=== PATIENT | male | born 1935 | race Caucasian/White ===

== ENCOUNTER 2019-01-29 05:29 | Emergency (ER) | payer MEDICARE ==
[~2019-01-29] VITALS: Ht 170.2 cm; Wt 70.3 kg
[2019-01-29] MEDS ORDERED: MECL12.5 (06:02)
[2019-01-29] MEDS ORDERED: ZESTORETIC 20-121 EA (06:02)
[2019-01-29] MEDS ORDERED: Motion Sickness25 M1 PO (07:03)
== END 2019-01-29 07:20 | disposition home or self-care (01) ==
LOC: ER 05:29
DX: R09.81 Nasal congestion (principal); E87.8 Other disorders of electrolyte and fluid balance, not elsewhere classified; I10 Essential (primary) hypertension; Z79.899 Other long term (current) drug therapy
CPT/HCPCS: 99283

== ENCOUNTER 2021-04-11 22:05 | Emergency (ER) | payer MEDICARE ==
[~2021-04-11] VITALS: Ht 172.7 cm; Wt 65.8 kg
[~2021-04-11 22:05] MED LIST: MECL12.5; Motion Sickness25 M1 PO; ZESTORETIC 20-121 EA
[2021-04-11 23:08] LABS: BASOPHILS ABSOLUTE AUTO 0.02 K/mm3 (0.00-0.23); BASOPHILS PERCENT AUTO 0 % (0-2); EOSINOPHILS ABSOLUTE AUTO 0.08 K/mm3 (0.00-0.68); EOSINOPHILS PERCENT AUTO 1 % (0-6); Hematocrit 40.1 % (37.0-53.0); IMMATURE GRAN ABSOLUTE AUTO 0.01 K/mm3 (0.00-0.10); IMMATURE GRAN PERCENT AUTO 0 % (0-1); LYMPHOCYTES ABSOLUTE AUTO 1.15 K/mm3 (0.84-5.20); LYMPHOCYTES PERCENT AUTO 18 % (21-46); MONOCYTES ABSOLUTE AUTO 0.57 K/mm3 (0.16-1.47); MONOCYTES PERCENT AUTO 9 % (4-13); Mean Corpuscular HGB 31.5 pg (26.0-34.0); Mean Corpuscular HGB Conc 34.9 g/dL (31.5-36.5); Mean Corpuscular Volume 90 fL (80-100); Mean Platelet Volume 9.3 fL (9.1-12.4); NEUTROPHILS ABSOLUTE AUTO 4.55 K/mm3 (1.96-9.15); NEUTROPHILS PERCENT AUTO 71 % (41-73); Platelet Count 171 K/mm3 (150-400); RDW Coefficient Variation 13.6 % (11.7-14.2); RDW Standard Deviation 44.9 fL (35.1-46.3); Red Blood Cell Count 4.44 M/mm3 (4.30-5.90); White Blood Cell Count 6.38 K/mm3 (4.00-11.30)
[2021-04-11 23:29] LABS: Alanine Aminotransfer (ALT/SGP 26 U/L (12-78); Albumin, Blood 3.4 g/dL (3.4-5.0); Albumin/Globulin Ratio 0.9 (0.8-1.8); Alk Phos 71 U/L (50-136); Anion Gap 6 mmol/L (6-16); Aspartate Aminotrans (AST/SGOT 29 U/L (12-37); Bilirubin, Total 0.4 mg/dL (0.1-1.0); Blood Urea Nitrogen 21 mg/dL (8-24); Bun/Creatinine Ratio 19.1 (12.0-20.0); CO2, Blood 27 mmol/L (21-32); Calcium, Blood 9.5 mg/dL (8.5-10.1); Chloride, Blood 106 mmol/L (98-108); Globulin, Blood 3.7 g/dL (2.2-4.0); Glomerular Filtration Rate >60 (60-); Glucose, Blood 95 mg/dL (70-99); Potassium, Blood 3.8 mmol/L (3.5-5.5); Sodium, Blood 139 mmol/L (136-145); Total Protein, Blood 7.1 g/dL (6.4-8.2); Troponin I <0.015 ng/mL (0.000-0.040)
== END 2021-04-12 01:10 | disposition home or self-care (01) ==
LOC: ER 22:05
PROVIDERS: Physician Assistant
DX: R06.00 Dyspnea, unspecified (principal); R07.89 Other chest pain; I10 Essential (primary) hypertension; F17.210 Nicotine dependence, cigarettes, uncomplicated
CPT/HCPCS: 36415; 71045; 80053; 83690; 83880; 84484; 85025; 93005; 93010; 99284-25

== ENCOUNTER 2023-02-06 11:08 | Day surgery (SDC) | payer MEDICARE ==
[~2023-02-06] VITALS: Ht 172.7 cm; Wt 61.5 kg
[2023-02-06] MEDS ORDERED: DRAMAMINE25 M3 PO (11:43)
[2023-02-06] MEDS ORDERED: ATOR10 PO (11:44)
[2023-02-06] MEDS ORDERED: Aspir 8181 MG PO (11:48)
--- NOTE | 2023-02-06 13:08 | NUR ---
02/06/23 Billie Morales 0.1ML OF EPI (1MG/ML) MIXED AND VERIFIED WITH 20ML OF NORMAL SALINE TO MAKE EPI 1:200,000 FOR [facility]JECTION AT [facility] BY DR NIEVES. 2ML INJECTED.
--- NOTE | 2023-02-06 13:35 | NUR ---
02/06/23 1335 Daphney Hoskins 6L O2 DC'D AT 1330. SATS ARE 95% ON ROOM AIR AT THIS TIME. PT ALERT AND ORIENTED X3. PT DENIES PAIN/NAUSEA.
[2023-02-06 15:37] VITALS: BP 148/84
[2023-02-26] MEDS ORDERED: LISI20 PO (02:17)
[2023-02-28] MEDS ORDERED: Prinivil10 MG PO (12:13)
== END 2023-02-06 15:30 | disposition home or self-care (01) ==
LOC: ORSCSDS 11:08
PROVIDERS: Otolaryngology
PROC: 07B10ZX Excision of Right Neck Lymphatic, Open Approach, Diagnostic (ICD-10-PCS; principal; 2023-02-06 12:30)
DX: C82.31 Follicular lymphoma grade IIIa, lymph nodes of head, face, and neck (principal); R59.0 Localized enlarged lymph nodes; I10 Essential (primary) hypertension; Z79.899 Other long term (current) drug therapy; Z79.82 Long term (current) use of aspirin
CPT/HCPCS: 87102; 87116; 87206; 88184; 88185; 88305; 88341; 88342; 88360; J0171; J2704; J3010; J7120

== ENCOUNTER 2023-02-13 16:08 | Emergency (ER) | payer MEDICARE ==
[~2023-02-13] VITALS: Ht 170.2 cm; Wt 63.5 kg
[~2023-02-13 16:08] MED LIST changes: +ATOR10 PO; +Aspir 8181 MG PO; +DRAMAMINE25 M3 PO
[2023-02-13 16:41] LABS: BASOPHILS ABSOLUTE AUTO 0.02 K/mm3 (0.00-0.23); BASOPHILS PERCENT AUTO 0 % (0-2); EOSINOPHILS ABSOLUTE AUTO 0.04 K/mm3 (0.00-0.68); EOSINOPHILS PERCENT AUTO 0 % (0-6); Hematocrit 38.4 % (37.0-53.0); Hemoglobin 13.5 g/dL (13.5-17.5); IMMATURE GRAN ABSOLUTE AUTO 0.04 K/mm3 (0.00-0.10); IMMATURE GRAN PERCENT AUTO 0 % (0-1); LYMPHOCYTES ABSOLUTE AUTO 0.78 K/mm3 (0.84-5.20); LYMPHOCYTES PERCENT AUTO 7 % (21-46); MONOCYTES ABSOLUTE AUTO 0.93 K/mm3 (0.16-1.47); MONOCYTES PERCENT AUTO 9 % (4-13); Mean Corpuscular HGB 30.4 pg (26.0-34.0); Mean Corpuscular HGB Conc 35.2 g/dL (31.5-36.5); Mean Corpuscular Volume 87 fL (80-100); Mean Platelet Volume 8.9 fL (9.1-12.4); NEUTROPHILS ABSOLUTE AUTO 8.83 K/mm3 (1.96-9.15); NEUTROPHILS PERCENT AUTO 83 % (41-73); Platelet Count 221 K/mm3 (150-400); RDW Coefficient Variation 13.9 % (11.7-14.2); RDW Standard Deviation 43.5 fL (35.1-46.3); Red Blood Cell Count 4.44 M/mm3 (4.30-5.90); White Blood Cell Count 10.64 K/mm3 (4.00-11.30)
[2023-02-13 17:07] LABS: Albumin, Blood 3.8 g/dL (3.4-5.0); Albumin/Globulin Ratio 1.2 (0.8-1.8); Bilirubin, Total 0.4 mg/dL (0.1-1.0); Bun/Creatinine Ratio 18.6 (12.0-20.0); Calcium, Blood 9.5 mg/dL (8.5-10.1); Creatinine, Blood 1.13 mg/dL (0.60-1.20); Globulin, Blood 3.3 g/dL (2.2-4.0); Magnesium, Blood 1.9 mg/dL (1.6-2.4); Potassium, Blood 4.2 mmol/L (3.5-5.5); Total Protein, Blood 7.1 g/dL (6.4-8.2)
[2023-02-13 20:10] LABS: Source, Urine Straight Cath
[2023-02-13 20:27] LABS: Appearance, Urine Hazy (Clear); Bilirubin, Urine Neg (Neg); Blood, Urine 2+ (Neg); Color, Urine Yellow (P-Yellow); Glucose Qualitative, Urine Neg (Neg); Ketones, Urine 3+ (Neg); Leukocyte Esterase, Urine 3+ (Neg); Nitrite, Urine Pos (Neg); Protein, Urine 2+ (Neg); Urobilinogen, Urine NORM (Normal)
[2023-02-13 21:19] LABS: Red Blood Cells, Urine 0-2 /hpf (0-2); White Blood Cells, Urine 50-100 /hpf (0-5)
[2023-02-13 21:20] LABS: Bacteria Many /hpf; Mucus Mod (0-Heavy); Squamous Epithelial Cells Rare /hpf (Few)
[2023-02-13 21:21] LABS: Hyaline Casts 0-2 /lpf (0-2); Transitional Epithelial Cells Rare /hpf (0-Rare)
[2023-02-13 21:30] VITALS: BP 147/94
[2023-02-13] MEDS ORDERED: CEFD300 PO (21:33)
== END 2023-02-13 22:15 | disposition home or self-care (01) ==
LOC: ER 16:08
PROVIDERS: Emergency Medicine; Physician Assistant
DX: N39.0 Urinary tract infection, site not specified (principal); E87.1 Hypo-osmolality and hyponatremia; J40 Bronchitis, not specified as acute or chronic; I10 Essential (primary) hypertension; F17.210 Nicotine dependence, cigarettes, uncomplicated; Z79.899 Other long term (current) drug therapy; Z79.82 Long term (current) use of aspirin
CPT/HCPCS: 51701; 70450; 71046; 80053; 81001; 83735; 83880; 85025; 93005; 93010; 96361-59; 96365-59; 99285-25; J0696; J7030

== ENCOUNTER → 2023-03-26 | Outpatient (CLI) | payer MEDICARE ==
[~2023-03-26] MED LIST changes: +CEFD300 PO; +LISI20 PO; +Prinivil10 MG PO
[2023-03-26 12:10] LABS: Bun/Creatinine Ratio 14.4 (12.0-20.0); Calcium, Blood 7.2 mg/dL (8.5-10.1); Creatinine, Blood 1.11 mg/dL (0.60-1.20); Potassium, Blood 4.3 mmol/L (3.5-5.5)
== END | disposition home or self-care (01) ==
LOC: LAB 09:50 → LAB SHORT 09:50
PROVIDERS: Internal Medicine Hematology & Oncology
DX: C82.20 Follicular lymphoma grade III, unspecified, unspecified site (principal)
CPT/HCPCS: 80048

== ENCOUNTER → 2023-03-28 | Outpatient (CLI) | payer MEDICARE ==
[2023-03-28 19:39] LABS: Bun/Creatinine Ratio 15.6 (12.0-20.0); Calcium, Blood 8.1 mg/dL (8.5-10.1); Creatinine, Blood 1.28 mg/dL (0.60-1.20); Potassium, Blood 5.3 mmol/L (3.5-5.5)
== END | disposition home or self-care (01) ==
LOC: LAB 17:17 → LAB SHORT 17:17
PROVIDERS: Nurse Practitioner Family
DX: R60.0 Localized edema (principal)
CPT/HCPCS: 80048

== ENCOUNTER 2023-04-03 16:37 | Emergency (ER) | payer MEDICARE ==
[~2023-04-03] VITALS: Ht 170.2 cm; Wt 60.8 kg
[2023-04-03 17:09] LABS: Hemoglobin 13.6 g/dL (13.5-17.5); Mean Corpuscular HGB 30.6 pg (26.0-34.0); Mean Corpuscular Volume 90 fL (80-100); RDW Coefficient Variation 15.7 % (11.7-14.2); RDW Standard Deviation 51.5 fL (35.1-46.3); Red Blood Cell Count 4.45 M/mm3 (4.30-5.90); White Blood Cell Count 44.18 K/mm3 (4.00-11.30)
[2023-04-03 17:36] LABS: Albumin, Blood 2.3 g/dL (3.4-5.0); Albumin/Globulin Ratio 0.8 (0.8-1.8); BAND PERCENT MAN 8 % (0-8); BASOPHILS PERCENT MAN 0 % (0-2); Bilirubin, Total 0.4 mg/dL (0.1-1.0); Bun/Creatinine Ratio 16.8 (12.0-20.0); Calcium, Blood 7.9 mg/dL (8.5-10.1); Creatinine, Blood 1.19 mg/dL (0.60-1.20); EOSINOPHILS PERCENT MAN 0 % (0-6); Globulin, Blood 2.8 g/dL (2.2-4.0); LYMPHOCYTES ABSOLUTE MAN 0.88 K/mm3 (0.84-5.20); LYMPHOCYTES PERCENT MAN 2 % (21-46); MONOCYTES ABSOLUTE MAN 0.44 K/mm3 (0.16-1.47); MONOCYTES PERCENT MAN 1 % (4-13); NEUTROPHILS ABSOLUTE MAN 42.85 K/mm3 (1.96-9.15); Potassium, Blood 4.5 mmol/L (3.5-5.5); SEG NEUTROPHILS PERCENT MAN 89 % (41-73); TOTAL CELLS COUNTED 100; Total Protein, Blood 5.1 g/dL (6.4-8.2)
[2023-04-03 17:37] LABS: Mean Platelet Volume 9.6 fL (9.1-12.4); Platelet Count 78 K/mm3 (150-400)
[2023-04-03 18:35] VITALS: BP 106/60
== END 2023-04-03 19:45 | disposition home or self-care (01) ==
LOC: ER 16:37
PROVIDERS: Physician Assistant
DX: I95.9 Hypotension, unspecified (principal); R09.02 Hypoxemia; C82.99 Follicular lymphoma, unspecified, extranodal and solid organ sites; I10 Essential (primary) hypertension; F17.290 Nicotine dependence, other tobacco product, uncomplicated
CPT/HCPCS: 71046; 80053; 83880; 84484; 85025; 93005; 93010; 99285-25

== ENCOUNTER 2023-04-14 14:31 | Emergency (ER) | payer MEDICARE ==
[~2023-04-14] VITALS: Ht 170.2 cm; Wt 59.0 kg
[2023-04-14] MEDS ORDERED: BUME2 PO (15:10)
[2023-04-14] MEDS ORDERED: OXAYDO5 M2 PO (15:11)
[2023-04-14] MEDS ORDERED: NYSTRIT TOP (15:14)
[2023-04-14 15:23] LABS: BASOPHILS ABSOLUTE AUTO 0.09 K/mm3 (0.00-0.23); BASOPHILS PERCENT AUTO 0 % (0-2); EOSINOPHILS ABSOLUTE AUTO 0.01 K/mm3 (0.00-0.68); EOSINOPHILS PERCENT AUTO 0 % (0-6); Hematocrit 44.9 % (37.0-53.0); Hemoglobin 15.3 g/dL (13.5-17.5); IMMATURE GRAN ABSOLUTE AUTO 0.24 K/mm3 (0.00-0.10); IMMATURE GRAN PERCENT AUTO 1 % (0-1); LYMPHOCYTES ABSOLUTE AUTO 3.78 K/mm3 (0.84-5.20); LYMPHOCYTES PERCENT AUTO 19 % (21-46); MONOCYTES ABSOLUTE AUTO 0.87 K/mm3 (0.16-1.47); MONOCYTES PERCENT AUTO 4 % (4-13); Mean Corpuscular HGB 29.7 pg (26.0-34.0); Mean Corpuscular HGB Conc 34.1 g/dL (31.5-36.5); Mean Corpuscular Volume 87 fL (80-100); Mean Platelet Volume 9.1 fL (9.1-12.4); NEUTROPHILS ABSOLUTE AUTO 15.48 K/mm3 (1.96-9.15); NEUTROPHILS PERCENT AUTO 76 % (41-73); Platelet Count 188 K/mm3 (150-400); RDW Standard Deviation 50.5 fL (35.1-46.3); Red Blood Cell Count 5.15 M/mm3 (4.30-5.90); White Blood Cell Count 20.47 K/mm3 (4.00-11.30)
[2023-04-14 15:52] LABS: Albumin, Blood 2.4 g/dL (3.4-5.0); Albumin/Globulin Ratio 0.7 (0.8-1.8); Bilirubin, Total 0.5 mg/dL (0.1-1.0); Bun/Creatinine Ratio 29.7 (12.0-20.0); Calcium, Blood 7.9 mg/dL (8.5-10.1); Creatinine, Blood 1.28 mg/dL (0.60-1.20); Globulin, Blood 3.3 g/dL (2.2-4.0); Potassium, Blood 4.2 mmol/L (3.5-5.5); Total Protein, Blood 5.7 g/dL (6.4-8.2)
[2023-04-14 16:00] VITALS: BP 85/69
[2023-04-14] MEDS ORDERED: VALA500 PO (16:07)
[2023-04-14] MEDS ORDERED: GABA300 PO (16:07)
[2023-04-14] MEDS ORDERED: Roxicodone5 MG PO (23:04)
== END 2023-04-14 16:31 | disposition home or self-care (01) ==
LOC: ER 14:31
PROVIDERS: Student in an Organized Health Care Education/Training Program
DX: B02.9 Zoster without complications (principal); I10 Essential (primary) hypertension; F17.210 Nicotine dependence, cigarettes, uncomplicated; Z79.899 Other long term (current) drug therapy
CPT/HCPCS: 80053; 85025; 93005; 93010; 99283-25

== ENCOUNTER 2023-04-14 20:28 | Emergency (ER) | payer MEDICARE ==
[~2023-04-14] VITALS: Ht 167.6 cm; Wt 63.5 kg
[~2023-04-14 20:28] MED LIST changes: +BUME2 PO; +GABA300 PO; +NYSTRIT TOP; +OXAYDO5 M2 PO; +VALA500 PO
[2023-04-14 20:38] VITALS: BP 81/61
[2023-04-14] MEDS ORDERED: Roxicodone5 MG PO (23:04)
== END 2023-04-14 23:55 | disposition home or self-care (01) ==
LOC: ER 20:28
DX: R55 Syncope and collapse (principal); I12.9 Hypertensive chronic kidney disease with stage 1 through stage 4 chronic kidney disease, or unspecified chronic kidney disease; N18.9 Chronic kidney disease, unspecified; E87.1 Hypo-osmolality and hyponatremia; C82.90 Follicular lymphoma, unspecified, unspecified site; F17.290 Nicotine dependence, other tobacco product, uncomplicated; Z79.899 Other long term (current) drug therapy
CPT/HCPCS: 93005; 93010; 99285-25